=== PATIENT | male | born 1955 | race Caucasian/White ===

== ENCOUNTER 2024-03-20 11:46 | Emergency (ER) | payer MEDICARE, SELFPAY ==
[2024-03-20 11:49] VITALS: BP 148/90; PULSE 78; RESP 19; TEMP 36.9; O2SAT 98; BMI 25.8
[2024-03-20 11:55] VITALS: BP 148/90; PULSE 78; O2SAT 95
[2024-03-20 12:00] VITALS: BP 133/84; PULSE 68; O2SAT 94
--- NOTE | 2024-03-20 12:09 | ED_ITS ---
<Statement entered by Yao Canales MD - 03/23/24 15:31> I was consulted by the BOB, and we discussed the complexity of the problems being addressed. I approved the treatment and management plan for this patient's care in the emergency department, thus performing a substantive portion of the medical decision making. Yao Canales MD, PATRICIA, FACEP Discharge Plan Disposition Patient Disposition: Home, Self-Care Condition: Good Prescriptions Prescriptions: New vpeadsofyxavklz-dhsxhgqyw-LW [Bromfed DM] 2-30-10 mg/5 mL syrup 5 ml PO Q4H PRN (Reason: sinus symptoms) Qty: 118 0RF Referrals Follow up/Referrals: Provider,Referral, [Primary Care Provider] - See instructions Activity Restrictions/Add. Instructions Additional Instructions/Restrictions: Even diagnosed with an upper respiratory tract infection. Follow-up with your PCP if no improvement or worsening signs or symptoms or return to the ER as needed. I will call you later today with the results of your respiratory swab. Clinical Impressions Clinical Impression: Influenza A Print Language Print Language: Uzbek Discharge ED Provider: Yao Canales General Adult HPI General Chief complaint: Upper Respiratory Infection Stated complaint: chills, runny nose, h/a, body aches Time Seen by Provider: 03/20/24 12:08 Mode of Arrival: Ambulatory Source of Information: Patient Limitations: No Limitations Description of Symptoms (Recalled from ER Triage Doc. by RN): pt presents to ED with c/o nasal drainage, body aches, fatigue. symptoms began wednesday. pt reports exposure to upper respiratory infection and also bronchitis. no cp, no soa. History of Present Illness HPI narrative: Patient presents for evaluation of cough congestion and myalgias. Patient reports that he has had cough congestion and myalgias since Wednesday. He has been exposed to sick family members over [place] however does not know what specifically they were sick with. He denies any shortness of breath fever chills hemoptysis hematochezia melena hematemesis or chest pain. Related Data Previous Rx's ?Medication ?Instructions ?Recorded yzxjbxmodqawiik-lzgbnmqocojbblj-QE 5 ml PO Q4H PRN sinus symptoms 03/20/24 2 mg-30 mg-10 mg/5 mL oral syrup #118 mL (Bromfed DM) Allergies Allergy/AdvReac Type Severity Reaction Status Date / Time No Known Allergies Allergy Verified 03/20/24 12:01 [facility] Disclaimer: The information contained in this section may have been updated after the patient was seen, as this information can be updated by other users. Social History Smoking Status: Current every day smoker alcohol intake: never current occupational status: retired Travel in the last 8 weeks: None ROS Obtained: Yes Systems reviewed as appropriate & no additional complaints except as documented Physical Exam General General appearance: alert and in no apparent distress Respiratory Respiratory exam: Present normal lung sounds bilaterally; Absent respiratory distress, wheezes or accessory muscle use Cardiovascular Cardiovascular exam: Present regular rate Neurological Exam Neurological exam: Present alert and oriented X3 Medical Decision Making Medical Records Medical records reviewed: Yes I reviewed the patient's medical records. Screening: Per USPSTF and CDC recommendations, given the prevalence of disease in our region, it is our hospital?s policy to screen for HIV and viral Hepatitis for all patients aged 18 and over and those with ongoing risk factors. Aram Inquiry Pt receiving controlled substance: No Vital Signs: 03/20/24 11:49 03/20/24 11:55 03/20/24 12:00 Temperature 98.4 F Temperature Source Oral Pulse Rate 78 68 Pulse Rate [Left Radial] 78 Respiratory Rate 19 Blood Pressure 148/90 H 133/84 Blood Pressure [Right Arm] 148/90 H Blood Pressure Mean [Right Arm] 109 02 Sat by Pulse Oximetry 98 95 94 L Oxygen Delivery Method Room Air 03/20/24 12:30 03/20/24 12:44 Temperature 98.0 F Temperature Source Pulse Rate 77 77 Pulse Rate [Left Radial] Respiratory Rate 16 Blood Pressure 136/93 H 136/93 H Blood Pressure [Right Arm] Blood Pressure Mean [Right Arm] 02 Sat by Pulse Oximetry 93 L Oxygen Delivery Method Room Air Lab Data Lab results reviewed: Yes I reviewed the patient's lab results. Lab Results 03/20/24 12:31: SARS-CoV-2 (PCR) Not detected, Influenza A Untype (PCR) Detected A, Influenza Type B (PCR) Not detected, POC RSV Rapid Negative Orders (Tests/Meds): ORDERS Category Date Time Status RSV Rapid Ab Screen Stat Lab 03/20/24 12:31 Completed Rapid PCR Covid and Flu A/B Stat Lab 03/20/24 12:31 Completed Medical Decision Narrative: In summary patient is a 69-year-old male who presents to the emergency department for evaluation of URI symptoms. Patient is dynamically stable with a blood pressure 148/90 pulse 78 respiratory rate is 19 satting at 98% on room air upon arrival, afebrile at 98.4. Physical exam is remarkable for boggy nasal mucosa but clear rhinorrhea, normal posterior pharynx, clear breath sounds with no increased work of breathing or accessory muscle use.. Differential diagnosis includes viral versus bacterial respiratory tract infection although latter less likely as there is no red flags to suggest such etc. Initial workup will be conducted with nasal swabs. Initial interventions considered however patient is afebrile and does not appear dry thus are deferred. I had interactive discussion with the patient regarding his symptoms and offered respiratory swabs and for me to call him later or he can stay and wait for the results. Via patient directed discharge and decision making patient elected to be discharged with a prescription for Bromfed sent to his pharmacy and with me notifying of the results of his swabs when they come back. Patient given strict return precautions. I reviewed patient's respiratory swab at 1620 and patient is flu a positive. I attempted to notify the patient via telephone as we prearranged however patient's phone in the computer is disconnected. Critical Care Critical Care Time Critical Care Time: No
[2024-03-20 12:30] VITALS: BP 136/93; PULSE 77; O2SAT 93
[2024-03-20 12:37] LABS: Coronavirus 19, PCR Not Detected (NotDetected); Influenza B, PCR Not Detected (NotDetected)
[2024-03-20 12:44] VITALS: BP 136/93; PULSE 77; RESP 16; TEMP 36.7
[2024-03-20 13:03] LABS: RSV Rapid Ab Screen Negative (Negative)
[2024-03-20 13:06] LABS: Influenza A, PCR Detected (NotDetected)
== END 2024-03-20 12:45 | disposition home or self-care (01) ==
PROVIDERS: Physician Assistant; Emergency Provider Student in an Organized Health Care Education/Training Program
DX: J10.1 Influenza due to other identified influenza virus with other respiratory manifestations (principal); R53.83 Other fatigue; M79.10 Myalgia, unspecified site; R51.9 Headache, unspecified; R05.9 Cough, unspecified; R09.82 Postnasal drip
CPT/HCPCS: 87636; 87807; 99283